=== PATIENT | female | born 2000 | race Two or more races ===

== ENCOUNTER 2024-08-22 10:42 | Emergency (ER) | payer MEDICAID, SELFPAY ==
[2024-08-22 10:53] VITALS: BP 109/78; PULSE 100; RESP 19; TEMP 37.1; O2SAT 96; BMI 28.1
--- NOTE | 2024-08-22 10:57 | EDNOTE_ITS ---
<Statement entered by Dottie Garnica MD - 08/29/24 12:02> As co-signing physician, I was present and available for consult prn. I concur with the plan and care as documented by the midlevel provider. Upper Respiratory Inf. RME/HPI General Chief Complaint: Flu Like Symptoms Stated Complaint: WEAKNESS RECENTLY DIAGNOSED WITH FLU Time Seen by Provider: 08/22/24 10:58 Source: patient Arrival date/time: 08/22/24 10:42 24-year-old female with no known medical history presents to the emergency room with a chief complaint of weakness. Patient was recently diagnosed with influenza A by her primary care provider. Mode of arrival: ambulatory Limitations: no limitations Related Data Previous Rx's ?Medication ?Instructions ?Recorded pantoprazole 40 mg tablet,delayed 40 mg PO QDAY #30 tabs 04/15/22 release (Protonix) tramadol 50 mg tablet 50 mg PO Q8H PRN pain #7 tabs 04/15/22 ursodiol 300 mg capsule 300 mg PO QID #120 caps 04/15/22 ibuprofen 600 mg tablet 600 mg PO Q6H PRN pain #30 tabs 10/15/23 methocarbamol 500 mg tablet 500 mg PO Q4H PRN muscle pain #30 10/15/23 tabs Allergies Allergy/AdvReac Type Severity Reaction Status Date / Time No Known Allergies Allergy Unknown Verified 08/22/24 10:45 Review of Systems Review of Systems Systems Reviewed: All systems reviewed, normal except as documented Constitutional Constitutional: Reports system reviewed and no additional complaints, except as documented, Denies fatigue, Denies fever(s), Denies headache(s) and Denies weakness Eyes Eyes: Reports system reviewed and no additional complaints, except as documented, Denies blurry vision and Denies change in vision ENT Ears, Nose, Mouth, and Throat: Reports system reviewed and no additional complaints, except as documented, Denies otalgia, Denies headache(s), Reports nasal congestion, Denies throat swelling and Denies vertigo Cardiovascular Cardiovascular: Reports system reviewed and no additional complaints, except as documented, Denies chest pain, Denies dyspnea and Denies dyspnea on exertion Respiratory Respiratory: Reports system reviewed and no additional complaints, except as documented, Reports chest congestion, Reports cough, Denies dyspnea, Denies dyspnea on exertion and Denies wheezing Gastrointestinal Gastrointestinal: Reports system reviewed and no additional complaints, except as documented, Denies abdominal pain, Denies cramping, Denies nausea and Denies vomiting Genitourinary Genitourinary: Reports system reviewed and no additional complaints, except as documented Musculoskeletal Musculoskeletal: Reports system reviewed and no additional complaints, except as documented and Denies back pain Integumentary/Breasts Skin/Breast: Reports system reviewed and no additional complaints, except as documented and Denies wounds Neurologic Neurologic: Reports system reviewed and no additional complaints, except as documented, Denies confusion, Denies headache(s), Denies lack of coordination, Denies vertigo and Denies weakness Psychiatric Psychiatric: Reports system reviewed and no additional complaints, except as documented, Denies anxiety, Denies confusion, Denies depression, Denies paranoia, Denies suicidal ideation and Denies tactile hallucinations Endocrine Endocrine: Reports system reviewed and no additional complaints, except as documented and Denies fatigue Hematologic/Lymphatic Hematologic/Lymphatic: Reports system reviewed and no additional complaints, except as documented and Denies lymphadenopathy Allergic/Immunologic Allergic/Immunologic: Reports system reviewed and no additional complaints, except as documented, Denies throat swelling, Denies urticaria and Denies wheezing ED Exam General Limitations: Present no limitations General appearance: Present alert and in no apparent distress Head Head exam: Present atraumatic Eye Eye exam: Present normal appearance, PERRL and EOMI ENT ENT exam: Present normal exam, normal oropharynx and mucous membranes moist Neck Neck exam: Present normal inspection, full ROM and trachea midline Chest Chest inspection: Present normal inspection and symmetric chest wall rise Respiratory Respiratory exam: Present normal lung sounds bilaterally; Absent respiratory distress, wheezes, stridor, accessory muscle use or prolonged expiratory phase Cardiovascular Cardiovascular exam: Present regular rate, normal rhythm and normal heart sounds Abdominal Exam Abdominal exam: Present soft and normal bowel sounds Extremities Exam Extremities exam: Present normal inspection and full ROM Back Exam Back exam: Present normal inspection and full ROM Neurological Exam Neurological exam: Present alert, oriented X3 and CN II-XII intact Psychiatric Psychiatric exam: Present normal affect and normal mood Skin Skin exam: Present warm, dry, intact and normal color Course Quality Measures none Vital Signs Vital signs: Vital Signs Temperature 98.7 F 08/22/24 10:53 Pulse Rate 100 08/22/24 10:53 Respiratory Rate 19 08/22/24 10:53 Blood Pressure 109/78 08/22/24 10:53 Pulse Oximetry (%) 96 08/22/24 10:53 Oxygen Delivery Method Room Air 08/22/24 10:53 O2 saturation 96% within normal limits Upper Respiratory Infection MDM Narrative MDM Narrative:: 24-year-old female with no known medical history presents to the emergency room with a chief complaint of weakness. Patient was recently diagnosed with influenza A by her primary care provider. Clinically the patient appears nontoxic and in no apparent distress. Physical examination shows clear bilateral lung sounds with no wheezing stridor or any respiratory distress. The patient is afebrile and is acting appropriately. Patient was recently diagnosed with influenza A. Patient was discharged and educated to follow-up with primary care provider and return to the emergency room for any evidence of worsening signs or symptoms Patient data External records reviewed:: [facility] previous records Clinical information provided by:: patient Social determinants that could affect healthcare access:: none Patient has the following chronic illnesses:: No chronic illness How is presenting disease/condition affected by chronic disease/condition?: no chronic disease Evaluation data The following diagnostics were reviewed and interpreted by me:: lab results and radiology exam(s) Lab and/or radiology exams considered but not ordered:: Labs and radiology exams considered and ordered Interpretation Summary: N/A Medications / Prescriptions Medications or Prescriptions considered but not ordered:: Medication not given Medication administrations:: Medication not given Consultations Consultation(s) initiated? (list below): No Diagnosis Upper Respiratory Differential Diagnosis: upper respiratory infection, viral infection, bronchitis, influenza and pharyngitis Most likely diagnosis given after review of the tests above:: Influenza Admission Indicated Admission indicated?: not indicated Admission Request Was there a request for admission?: No Disposition Plan Disposition Plan: Discharge Discharge Attestation Discharge Attestation: The patient and all family members were given an opportunity to ask questions and understood the discharge instructions. Discharge instructions specifically effects, indications for sooner follow up or return to the emergency department, and the expected course of current diagnosis. Patient condition: Stable Discharge Plan Plan Patient Disposition: HOME (Self Care) Disposition Comment: Stable Prescriptions/Referrals Prescriptions/Med Rec: No Action ursodiol 300 mg Capsule 300 mg PO QID Qty: 120 0RF pantoprazole [Protonix] 40 mg tablet,delayed release (DR/EC) 40 mg PO QDAY Qty: 30 0RF tramadol 50 mg tablet 50 mg PO Q8H PRN (Reason: pain) Qty: 7 0RF ibuprofen 600 mg tablet 600 mg PO Q6H PRN (Reason: pain) Qty: 30 0RF methocarbamol 500 mg tablet 500 mg PO Q4H PRN (Reason: muscle pain) Qty: 30 0RF Problem List Clinical Impression: Influenza A Patient/Caregiver Discharge Instructions Education Materials: ED Influenza (Adult) Additional Instructions: Please follow-up with your primary care provider in the next 24 to 48 hours. For any evidence of worsening signs or symptoms please return to the emergency room immediately Print Language: Lithuanian Stand Alone Forms: Rasheeda Award Info., Patient Portal Info Letter PA/CONCERT PROMOTER Supervising Physician PA/CONCERT PROMOTER Supervising Physician: Dr. GARNICA
== END 2024-08-22 11:05 | disposition home or self-care (01) ==
LOC: SERX 11:07
PROVIDERS: Emergency Provider Emergency Medicine; PCP Family Medicine
DX: J10.1 Influenza due to other identified influenza virus with other respiratory manifestations (principal)
CPT/HCPCS: 99281

== ENCOUNTER 2025-01-10 17:23 | Emergency (ER) | payer MEDICAID, SELFPAY ==
[2025-01-10 17:57] VITALS: BP 121/79; PULSE 95; RESP 18; TEMP 37.1; O2SAT 99
--- NOTE | 2025-01-10 18:07 | EDNOTE_ITS ---
Nausea/Vomit./Diarrhea-RME/HPI General Chief complaint: Nausea/Vomiting/Diarrhea Stated complaint: Requesting IV FLUIDS, 10 WKS PREG V/D Time Seen by Provider: 01/10/25 18:02 Arrival date/time: 01/10/25 17:23 24-year-old female with no significant medical problems presents to the emergency department today states she is approximately 10 weeks patient reports nausea vomiting and diarrhea which began last night. Patient reports no abdominal pain no chest pain no vaginal bleeding no pelvic pain Limitations: no limitations Related Data Previous Rx's ?Medication ?Instructions ?Recorded pantoprazole 40 mg tablet,delayed 40 mg PO QDAY #30 ta bs 04/15/22 release (Protonix) tramadol 50 mg tablet 50 mg PO Q8H PRN pain #7 tab s 04/15/22 ursodiol 300 mg capsule 300 mg PO QID #120 caps 03/21 03/10 ibuprofen 600 mg tablet 600 mg PO Q6H PRN pain #30 t abs 10/15/23 methocarbamol 500 mg tablet 500 mg PO Q4H PRN muscle p ain #30 10/15/23 tabs promethazine 12.5 mg rectal 12.5 mg [place] Q8HR PRN nausea and 01/10/25 suppository vomiting #12 ea Allergies Allergy/AdvReac Type Severity Reaction Status Date / Time No Known Allergies Allergy Unknown Verified 01/10/25 17:25 Review of Systems Review of Systems Systems Reviewed: All systems reviewed, normal except as documented Constitutional Constitutional: Reports system reviewed and no additional complaints, except as documented, Denies fever(s) and Denies headache(s) Eyes Eyes: Reports system reviewed and no additional complaints, except as documented and Denies blurry vision ENT Ears, Nose, Mouth, and Throat: Reports system reviewed and no additional complaints, except as documented, Denies headache(s), Denies nasal congestion and Denies nasal discharge Cardiovascular Cardiovascular: Reports system reviewed and no additional complaints, except as documented, Denies chest pain and Denies dyspnea Respiratory Respiratory: Reports system reviewed and no additional complaints, except as documented, Denies chest congestion, Denies cough and Denies dyspnea Gastrointestinal Gastrointestinal: Reports system reviewed and no additional complaints, except as documented, Denies abdominal pain, Denies cramping, Denies hematochezia, Reports loose stools, Denies melena, Reports nausea and Reports vomiting Integumentary/Breasts Skin/Breast: Reports system reviewed and no additional complaints, except as documented and Denies rash Neurologic Neurologic: Reports system reviewed and no additional complaints, except as documented, Reports as per HPI and Denies headache(s) Past Medical History Past Medical History NEUROLOGIC: Negative Neurological Disorders or Seizures CARDIAC: Negative Cardiac Disorders or Congestive Heart Failure RESPIRATORY: Negative Chronic Obstructive Pulmonary Disease (COPD) GASTROINTESTINAL: Negative Gastrointestinal Disorders GENITOURINARY: Negative Genitourinary Disorders or Renal Disease REPRODUCTIVE: Positive Previous Pregnancies (Two previous prengancies) MUSCULOSKELETAL: Negative Musculoskeletal Disorders ENDOCRINE: Negative Endocrine Disorders, Diabetes Mellitus Type 1 or Diabetes Mellitus Type 2 HEMATOLOGIC: Negative Blood Disorders OTHER HISTORY: Negative Autoimmune Disease, Blood Transfusions, Blood Transfusion Reaction, Anesthesia Reactions or Cancer Surgical History SURGICAL: Negative Section Social History SMOKING STATUS: Never smoker ED Exam General Limitations: Present no limitations General appearance: Present alert and in no apparent distress Head Head exam: Present atraumatic, normocephalic and normal inspection Eye Eye exam: Present normal appearance, PERRL and EOMI; Absent conjunctival injection ENT ENT exam: Present normal exam, normal oropharynx and mucous membranes moist Neck Neck exam: Present normal inspection, full ROM and trachea midline Chest Chest inspection: Present normal inspection and symmetric chest wall rise Respiratory Respiratory exam: Present normal lung sounds bilaterally; Absent respiratory distress Cardiovascular Cardiovascular exam: Present regular rate, normal rhythm and normal heart sounds Abdominal Exam Abdominal exam: Present soft and normal bowel sounds; Absent distention, tenderness, guarding, rebound or rigidity Extremities Exam Extremities exam: Present normal inspection and full ROM Back Exam Back exam: Present normal inspection and full ROM Neurological Exam Neurological exam: Present alert, oriented X3 and CN II-XII intact Psychiatric Psychiatric exam: Present normal affect and normal mood Skin Skin exam: Present warm, dry, intact and normal color Course Quality Measures none Orders Category Date Time Status Metoclopramide Inj [Reglan Inj] Med 01/10/25 18:02 Discontinued 10 mg IM X1 ONE Vital Signs Vital signs: Vital Signs Temperature 98.8 F 01/10/25 17:57 Pulse Rate 95 01/10/25 17:57 Respiratory Rate 18 01/10/25 17:57 Blood Pressure 121/79 01/10/25 17:57 Pulse Oximetry (%) 99 01/10/25 17:57 Oxygen Delivery Method Room Air 01/10/25 17:57 O2 saturation 99% room air within normal limits Nausea/Vomiting/Diarrhea MDM Narrative MDM Narrative:: 24-year-old female with no significant medical problems presents to the emergency department today states she is approximately 10 weeks patient reports nausea vomiting and diarrhea which began last night. Patient reports no abdominal pain no chest pain no vaginal bleeding no pelvic pain On exam patient well-appearing patient does not appear toxic no acute distress Lab and imaging and IV fluids offered patient declined she states she will take an injection next medication and be discharged home Patient discharged home in no distress to follow-up with primary care doctor in the next 24 to 48 hours and for any worsening symptoms to return to the ER immed iately Patient data External records reviewed:: [facility] previous records Clinical information provided by:: patient Social determinants that could affect healthcare access:: none Patient has the following chronic illnesses:: None How is presenting disease/condition affected by chronic disease/condition?: no chronic disease Evaluation data The following diagnostics were reviewed and interpreted by me:: other (specify) (N/A) Lab and/or radiology exams considered but not ordered:: Considered not ordered Interpretation Summary: N/A Medications / Prescriptions Medications / Prescriptions considered but not ordered:: Given Medication administrations:: Medication Administration History Discontinued Medications Metoclopramide HCl (Metoclopramide Inj 5 Mg/Ml Vial 2 Ml) 10 mg IM X1 ONE; Protocol Stop: 01/10/25 18:03 Last Admin: 01/10/25 18:13 Dose: 10 mg Documented By: KF Given Consultations Consultation(s) initiated? (list below): No Diagnosis Nausea Differential Diagnosis: traveler's diarrhea, food poisoning and gastroenteritis Most likely diagnosis given after review of the tests above:: Gastroenteritis Admission Indicated Admission indicated?: not indicated Admission Request Was there a request for admission?: No Disposition Plan Disposition Plan: Discharge Discharge Attestation Discharge Attestation: The patient and all family members were given an opportunity to ask questions and understood the discharge instructions. Discharge instructions specifically effects, indications for sooner follow up or return to the emergency department, and the expected course of current diagnosis. Patient condition: Stable Discharge Plan Plan Patient Disposition: HOME (Self Care) Discharge Disposition comment: Stable Prescriptions/Referrals Prescriptions/Med Rec: New promethazine 12.5 mg suppository 12.5 mg [place] Q8HR PRN (Reason: nausea and vomiting) Qty: 12 0RF No Action ursodiol 300 mg Capsule 300 mg PO QID Qty: 120 0RF pantoprazole [Protonix] 40 mg tablet,delayed release (DR/EC) 40 mg PO QDAY Qty: 30 0RF tramadol 50 mg tablet 50 mg PO Q8H PRN (Reason: pain) Qty: 7 0RF ibuprofen 600 mg tablet 600 mg PO Q6H PRN (Reason: pain) Qty: 30 0RF methocarbamol 500 mg tablet 500 mg PO Q4H PRN (Reason: muscle pain) Qty: 30 0RF Problem List Clinical Impression: Nausea vomiting and diarrhea Patient/Caregiver Discharge Instructions Education Materials: ED Vomiting (Adult) Additional Instructions: Please follow up with your primary care doctor in the next 24-48hrs for any worsening symptoms return here immediately Print Language: Tajik Stand Alone Forms: Rasheeda Award Info., Patient Portal Info Letter PA/COMPUTER TECHNICAL SUPPORT SPECIALIST Supervising Physician PA/COMPUTER TECHNICAL SUPPORT SPECIALIST Supervising Physician: Dr. ellis
[2025-01-10] MEDS: METOCLOPRAMIDE INJ 5 MG/ML VIAL 2 ML 10 MG IM (18:13)
== END 2025-01-10 18:21 | disposition home or self-care (01) ==
LOC: SERX 18:19
PROVIDERS: Emergency Provider Emergency Medicine; PCP Family Medicine
DX: R11.2 Nausea with vomiting, unspecified (principal); R19.7 Diarrhea, unspecified
CPT/HCPCS: 96372; 99283; J2765

== ENCOUNTER 2025-05-31 14:11 | Observation (INO) | payer MEDICAID, SELFPAY ==
[2025-05-31] VITALS (15 sets, daily range): BP systolic 109–111; BP diastolic 61–69; PULSE 82–142; RESP 16–98; TEMP 36.5; O2SAT 99–100; BMI 27.4
--- NOTE | 2025-05-31 14:39 | XR_ITS ---
Examination: OB Transvaginal ultrasound of the pelvis, limited Technique: Transvaginal sonographic images pelvis performed using christiansen scale imaging Exam date and time: May 31, 2025, 1504 hours INDICATIONS: Onset lower pelvic pressure today. FINDINGS: Cervix 3.9 cm closed IMPRESSION: Cervix 3.9 cm closed
[2025-05-31 14:52] LABS: Collection Type, Urine Clean Catch
[2025-05-31 15:03] LABS: Bilirubin,Urine Negative (Negative); Blood,Urine Negative (Negative); Clarity,Urine Clear (Clear/Hazy); Color,Urine Colorless (Lt Yel-Yel); Culture Indicated,Urine Not Indicated; Glucose, Urine Negative (Negative); Ketones,Urine Negative (Negative); Leukocyte Esterase,Urine Negative (Negative); Nitrite,Urine Negative (Negative); PH,Urine 7.0 (5.0-7.0); Protein,Urine Negative (Neg - Trace); RBC,Urine 1 /hpf (0-3); Specific Gravity,Urine 1.008 (1.001-1.035); Squamous Epithelial Cell,Urine 3 /hpf (0-5); Urobilinogen,Urine Negative mg/dL (0.0-1.0); WBC,Urine 1 /hpf (0-5)
[2025-05-31] MEDS: RINGERS LACTATED 1000 ML 1,000 ML 999 ML IV (16:52)
[2025-05-31] MEDS: TERBUTALINE SULF INJ 1 MG/ML VIAL 0.25 MG SC (18:13)
== END 2025-05-31 19:23 | disposition home or self-care (01) ==
PROVIDERS: Admitting Provider Obstetrics & Gynecology; Visit Provider Obstetrics & Gynecology
DX: O47.03 False labor before 37 completed weeks of gestation, third trimester (principal); Z3A.30 30 weeks gestation of pregnancy
CPT/HCPCS: 59025; 59899; 76817; 81001; 82731; J3105; J7120

== ENCOUNTER 2025-07-10 09:07 | Outpatient (AMB) | payer MEDICAID, SELFPAY ==
[2025-07-10 09:21] VITALS: BP 107/69; PULSE 84; RESP 18; TEMP 36.3; O2SAT 98; BMI 28.8
--- NOTE | 2025-07-10 09:21 | OBCLNT_ITS ---
Vital Signs 07/10/25 09:21 Height 1.45 m Height Method Stated Weight 60.441 kg Weight Measurement Method Standing Scale BMI 28.8 BP 107/69 Blood Pressure Source Automatic Cuff Blood Pressure Location Right Upper Arm Position Sitting Respiration 18 Pulse 84 Pulse Source Monitor Temp 97.3 F Temp Source Temporal Artery Scan Pulse Oximetry (%) 98 Oxygen Delivery Method Room Air Allergies/Home Meds Allergies & Medications Allergies No Known Allergies Allergy (Unknown, Verified 07/10/25 09:23) Medication Reconciliation vits no.130-ferrous fum 27 mg iron-folic acid 800 mcg tablet ( Vitamin) 1 tab PO .qay 05/31/25 [History Confirmed 07/10/25] Intake Visit Data Collection New Patient or Established: Established Patient (seen at [facility] within 3 years) 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 Visit:: 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 TRANSFER Seen by Clinical Staff ONLY (RN/MA): No Elevator Installer Required: No Do You Feel Safe at Home: Yes Authorities Contacted: N/A PCP or OBGYN visit in last 3 months: Yes Hx Now: Yes Are you currently on any form of Control: No Pain Present Currently: No Pain Scale Used: Erickson-Harman/Numerical Pain scale:: 0 Smoking Status Smoking Status: Never smoker Immunizations Flu Vaccine in the Last 12 Months: No Flu Vaccine Exclusion Criteria: No Exclusion Criteria Questionnaires Covid-19 Vaccine Questionnaire Has patient been vacinated for Covid-19 Have you been vacinated for Covid-19: No PHQ-9 PHQ-2 Over the last 2 weeks, how often have you been bothered by any of the following problems? 1. Little interest or pleasure in doing things: not at all 2. Feeling down, depressed, or hopeless: not at all Total score: 0 PHQ-9 3. Trouble falling or staying asleep, or sleeping too much: Not at all 4. Feeling tired or having little energy: Not at all 5. Poor appetite or overeating: Not at all 6. Feeling bad about yourself - or that you are a failure or have let yourself or your family down: Not at all 7. Trouble concentrating on things, such as reading the newspaper or watching television: Not at all 8. Moving or speaking so slowly that other people could have noticed? - Or the opposite - being so fidgety or restless that you have been moving around a lot more than usual: not at all 9. Thoughts that you would be better off or of hurting yourself in some way : Not at all Total score: 0 If you checked off any problems, how difficult have these problems made it for you to do your work, take care of things at home, or get along with other people?: not difficult at all Source: Developed by Drs. Benjamín Johnson, Griselda Milligan, Marvel Granados and colleagues, with an educational bethany from [employer]. 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 Rouse's office. Records present. GBS negative. Patient denies any problems with . Reports good movement. Denies leaking, bleeding, contractions. Reports movement sono for growth at [facility]. Menstrual History Menstrual reliability: approximate (month known) Flow: normal Menstrual regularity: regular Monthly: Yes Age at menarche: 13 OB History : 3 Para: 2 # of Living Children: 2 Delivery History 1st : Child's name: RADHA HAMILTON date: 03/11/17 sex: male Gestational age at delivery (weeks): 36 Delivery type: vaginal History of depression before or after : No 2nd : Child's name: THAO HAMILTON date: 03/28/20 sex: male Gestational age at delivery (weeks): 38 Delivery type: vaginal History of depression before or after : No Infection History & Risk Evaluation History of STDs: none Genetic Screening & History Genetic Screening/Teratology Counseling - Includes patient, baby's father, or anyone in either family with: 1. Patient's age 35 years or older as of estimated date of delivery: No 2. Thalassemia (Czech, Salvadorean, Mediterranean, or Background); MCV less than 80: No 3. Neural Tube Defect (Meningomyelocele, Spina Bifida, or Anencephaly): No 4. Congenital Heart Defect: No 5. Down Syndrome: No 6. Johny-Sachs (Ashkenazi Jehovah'S Witness, Cajun, Bulgarian Cambodian): No 7. Lamberto Disease (Ashkenazi Jehovah'S Witness): No 8. Familial Dysautonomia (Ashkenazi Jehovah'S Witness): No 9. Sickle Cell Disease or Trait (): No 10. Hemophilia or other blood disorders: No 11. Muscular Dystrophy: No 12. Cystic Fibrosis: No 13. Spearfish's Chorea: No 14. Mental Retardation/Autism: No 15. Other inherited genetic or chromosomal disorder: No 16. Maternal Metabolic Disorder (EG,TYPE 1 Diabetes, PKU): No 17. Patient or baby's father had a child with defects not listed above: No 18. Recurrent loss or a stillbirth: No 19. Medications (including supplements, vitamins, herbs or otc drugs)/illicit/recreational drugs/alcohol since last menstrual period: No Infection History 1. Live with someone with TB or exposed to TB: No Other (see comments) Source: [employer] Review of Systems Review of Systems Systems Reviewed: All systems reviewed, normal except as documented Exam General Limitations: no limitations General Appearance: alert, in no apparent distress, comfortable, cooperative, h ealthy appearing, well developed and well groomed Head Head exam: atraumatic, normocephalic and normal inspection ENT ENT exam: Present normal exam, normal oropharynx and mucous membranes moist Neck Neck exam: Present normal inspection, full ROM and trachea midline Chest Chest inspection: Present normal inspection and symmetric chest wall rise Resp Respiratory exam: Present normal lung sounds bilaterally Abdominal Abdominal exam: Present soft and normal bowel sounds Psych Psychiatric exam: Present normal affect and normal mood Office Procedures OBC Clinic LOC & Office Proc's Nursing/Assessment Patient Status: Established Patient OB Clinic Nursing Assessment: Medication Reconciliation, Update PMH in EMR and Vital Signs OB Clinic Coordination of Care: Complex Care and Chronic Disease 1-5, Education Complex Pt/Fam, Consent,records obtained, informed consent, Lab and Imaging orders, Results/Orders obtained and Staff clarify orders Special Needs: Heart tones Established Patient Charge Established Patient Point Assignment: 140 Established Patient Point Charge: EP Level 4 (120-155) Assessment & Plan Diagnosis / Problem List (1) Encounter for supervision of high risk in third trimester, antepartum: Status: Acute Plan Discussed labor precautions. Kick count twice a day. Reviewed GBS. Sono for growth. Return in a week OB check at [facility] Additional Plan Follow Up: 1 Week (obc)
== END 2025-07-10 09:50 | disposition home or self-care (01) ==
LOC: HODSOBC 09:07
PROVIDERS: Supervising Provider Advanced Practice Midwife; Visit Provider Advanced Practice Midwife
DX: O09.93 Supervision of high risk pregnancy, unspecified, third trimester (principal); Z3A.36 36 weeks gestation of pregnancy
CPT/HCPCS: 99214; G0463

== ENCOUNTER 2025-07-13 09:04 | Outpatient (AMB) | payer MEDICAID, SELFPAY ==
[2025-07-13 09:20] VITALS: BP 112/76; PULSE 92; RESP 18; TEMP 36.3; O2SAT 98; BMI 28.3
--- NOTE | 2025-07-13 09:20 | OBCLNT_ITS ---
Vital Signs 07/13/25 09:20 Height 1.45 m Height Method Stated Weight 59.534 kg Weight Measurement Method Standing Scale BMI 28.3 BP 112/76 Blood Pressure Source Automatic Cuff Blood Pressure Location Left Upper Arm Position Sitting Respiration 18 Pulse 92 Pulse Source Monitor Temp 97.3 F Temp Source Oral Pulse Oximetry (%) 98 Oxygen Delivery Method Room Air Allergies/Home Meds Allergies & Medications Allergies No Known Allergies Allergy (Unknown, Verified 07/13/25 09:21) Medication Reconciliation vits no.130-ferrous fum 27 mg iron-folic acid 800 mcg tablet ( Vitamin) 1 tab PO .qay 05/31/25 [History Confirmed 07/13/25] Immunizations Immunizations Flu Vaccine in the Last 12 Months: Yes Date of most recent flu vaccination: 07/13/25 Flu Vaccine Exclusion Criteria: Already Received Care OB Visit Log OB Flowsheet Initial Weight: Not Recorded Date -?-?-?-?-?-?-?-?-?-?-?-?- EGA Weight BP Alb Glu CTX Pres Fundal ht FHR Mov Dilation Station Efface ment Hx Notes Visit Note 07/10/25 -?-?-?-?-?-?-?-?-?-?-?-?- 36w 1d 60.441 kg 107/69 occasional cephalic [address] Rouse's office. Records present. GBS negative. Patient denies any problems with . Reports good movement. Denies leaking, bleeding, contractions. Reports movement sono for growth at [facility]. 07/13/25 -?-?-?-?-?-?-?-?-?-?-?-?- 36w 4d 59.534 kg 112/76 occasional cephalic 36 145 active 2 -4 50 Increased pressure and contractions. Denies leaking or bleeding. Reports good movement. sve: 50/post/2/-4 soft Discussed labor precautions. Kick count. Discussed ER precautions. Return in a week OB check CELSO Calculator Estimated Delivery Date Method Current WG Current Estimate 08/06/25 LMP (Certain) 36w 4d Notes Visit Date: 07/10/25 Last Updated by: Pam Tobias CNM 25 yo . lmp 10/30/24. EDC: 08/06/25. O+,abs-,rpr;;nr, rub ni, hbsag-,hiv-,hc-,GC/CT-. nipt and carrier-, 1 hr gtt wnl, GBS- Office Procedures OBC Clinic LOC & Office Proc's Nursing/Assessment Patient Status: Established Patient OB Clinic Nursing Assessment: Medication Reconciliation, Update PMH in EMR and Vital Signs OB Clinic Coordination of Care: Complex Care and Chronic Disease 1-5, Consent,records obtained, informed consent, Education Simp Pt/Fam, 1 Ins Authorization, Lab and Imaging orders, Results/Orders obtained and Staff clarify orders Special Needs: Heart tones Established Patient Charge Established Patient Point Assignment: 150 Established Patient Point Charge: EP Level 4 (120-155) Injection/Vaccine Admin SQ Im Injection: Yes Immunizations flu vac ts (6mos up)-PF 45 mcg(15mcg x3)/0.5 mL IM syringe Performing Provider: Pam Tobias CNM Performing Location: [facility] Administered by: Juju Mtz MA on 07/13/25 10:41 Dose Route Admin Location Dispensed Lot Number Expiration Date Pack age [facility] [employer] 0.5 mL IM Left Deltoid 0.5 mL [id number] 02/16/26 [id number] [employer] VIS Given Date VIS Provided VIS Publication Date 07/13/25 Single Vaccine 24 Eligibility Eligibility Date Funding Source Public Non-[facility] Assessment & Plan Diagnosis / Problem List (1) Encounter for supervision of high risk in third trimester, antepartum: Status: Acute Plan Discussed labor precautions. Kick count twice a day. Discussed comfort measures. Return in a week OB check discussed ER precautions Additional Plan Follow Up: 1 Week (obc)
== END 2025-07-13 09:54 | disposition home or self-care (01) ==
LOC: HODSOBC 09:04
PROVIDERS: Supervising Provider Advanced Practice Midwife; Visit Provider Advanced Practice Midwife
DX: O09.93 Supervision of high risk pregnancy, unspecified, third trimester (principal); Z3A.36 36 weeks gestation of pregnancy; Z23 Encounter for immunization
CPT/HCPCS: 90471; 90686; 96372; 99214; G0463; J9060

== ENCOUNTER 2025-07-17 06:38 | Inpatient (IN) | payer MEDICAID, SELFPAY ==
[2025-07-17] VITALS (21 sets, daily range): BP systolic 101–132; BP diastolic 58–94; PULSE 65–104; RESP 16–97; TEMP 36.8–36.9; O2SAT 90–99; BMI 28.7; BMI 28.5
[2025-07-17 07:22] LABS: ROM Kit Exp Date# 041128; ROM Kit Lot # 58106258; ROM Swab Mixed By: NUNEE1; Rupture of Fetal Membranes Positive (Negative); Swb Mxed in Solvent 1 min? Yes
[2025-07-17] MEDS: OXYTOCIN in NS 20 units 20 UNIT/1,000 ML BAG 125 UNIT IV (07:31)
[2025-07-17] MEDS: MINERAL OIL 30 ML UDC TOP (07:31)
--- NOTE | 2025-07-17 07:41 | ESHP_ITS ---
Documentation for date of: 07/17/25 OB Labor/Induct. HPI History of Present Illness Chief complaint: Active labor : 3 Para: 2 Term pregnancies: 2 pregnancies: 0 Living children: 2 History of Abortions: Spontaneous and Elective: 0 History of Vaginal deliveries: 2 History of sections: No History of : No CELSO: 08/06/25 History of present illness: Aaron is a 25-year-old 3 para 2-0-0-2 at 37 weeks and 1 day presented to labor and delivery triage in active labor. Patient went down from 3 cm to full dilatation and less than 1 hour and proceeded to deliver precipitously. Patient presented with contractions every 3 to 4 minutes, denied any leakage of fluid or vaginal bleeding. Adequate movements. Patient started care at [facility] with Dr. Rouse. She transferred care to Pam Tobias CNM at the [facility] clinic within the last 2 weeks. I do not have any of her [facility] records available for review. History of Present Adequate Care: Yes Review of Systems Review of Systems Systems Reviewed: All systems reviewed, normal except as documented Past Medical History Surgical History SURGICAL: Negative Section Meds Home Medications and Allergies Home Medications ?Medication ?Instructions ?Recorded ?Confirmed ?Type vits no.130-ferrous fum 1 tab PO .qay 5 07/17/25 History 27 mg iron-folic acid 800 mcg tablet ( Vitamin) Allergies Allergy/AdvReac Type Severity Reaction Status Date / Time No Known Allergies Allergy Unknown Verified 07/17/25 07:17 OB Exam Physical Exam Vital signs: Temp Pulse Resp BP Pulse Ox 98.5 F 80 19 129/83 92 L 07/17/25 06:52 07/17/25 07:34 07/17/25 06:52 07/17/25 07:34 07/17/25 07:09 Constitutional Constitutional: no acute distress Routine HEENT Exam Head: Present normocephalic and atraumatic Eye: Present EOMI and PERRL ENT: Present mucous membranes moist Routine Neck Exam Neck: Present supple and trachea midline Routine Cardiovascular Exam Cardiovascular: Present RRR Routine Abdominal Exam Abdominal: Present soft and normoactive bowel sounds Detailed Labor and Delivery Exam Dilation (cm): 10 Effacement (%): 100 Cervix position: mid station: +4 Consistency: soft Presentation: Vertex Routine Extremities Exam Extremities: Present full ROM Routine Skin Exam Skin: Present intact, dry and warm Routine Neurological Exam Neurological: Present alert, oriented X3 and CN II-XII intact Routine Psychiatric Exam Psychiatric: Present normal affect and normal thought process OB Results Labs 07/17/25 07:20 OB Assessment & Plan Assessment and Plan (1) Encounter for supervision of high risk in third trimester, antepartum: Status: Acute Assessment and plan: Admit to inpatient status, patient is status post precipitous delivery Routine care, will try to get records when her office is open (2) Vaginal delivery: Status: Acute
[2025-07-17 07:47] LABS: Basophils # (Auto) 0.1 Thou/mm3 (0.0-0.2); Basophils % (Auto) 1 % (0-2.5); Eosinophils # (Auto) 0.1 Thou/mm3 (0.0-0.5); Eosinophils % (Auto) 0 % (0-10); Hematocrit 37.4 % (36.0-46.0); Hemoglobin 12.6 g/dL (12.0-16.0); Immature Granulocytes Auto 0.19 Thou/mm3 (0.00-0.00); Lymphocytes # (Auto) 3.1 Thou/mm3 (1.0-4.8); Lymphocytes % (Auto) 25 % (10-50); Mean Corpuscular HGB Conc 33.7 g/dl (31.0-37.0); Mean Corpuscular Hemoglobin 28.1 pg (25.0-35.0); Mean Corpuscular Volume 83 fL (80-100); Monocytes # (Auto) 0.7 Thou/mm3 (0.0-0.8); Monocytes % (Auto) 6 % (0-12); Neutrophils # (Auto) 8.3 Thou/mm3 (1.8-7.7); Neutrophils % (Auto) 67 % (37-80); Nucleated Red Blood Cell # 0.00 Thou/mm3 (0.00-0.00); Nucleated Red Blood Cell % 0 /100 WBC (0); Platelet Count 335 Thou/mm3 (140-440); RDW Standard Deviation 39.9 fL (36.4-46.3); Red Blood Count 4.49 Miln/mm3 (4.00-5.20); White Blood Count 12.4 Thou/mm3 (3.6-11.0)
[2025-07-17] MEDS: TRANEXAMIC ACID 1,000 MG IVPB 1,000 MG/100 ML BAG 200 MG IV (08:19)
[2025-07-17 08:28] LABS: Syphilis Nonreactive (Nonreactive)
[2025-07-17] MEDS: IBUPROFEN TAB 400 MG TABLET 800 MG PO (17:37)
--- NOTE | 2025-07-17 18:51 | PD.LDDELS ---
Data (Junior) Data Hx Section: No : 3 Term: 2 : 0 Livin Abortions: Spontaneous & Theraputic: 0 Delivery Data (Junior) Labor Data Initiation of labor: Spontaneous Induction/Augmentation Agent: None ROM date: 07/17/25 ROM time: 06:20 Amniotic membrane rupture type: Spontaneous Amniotic fluid description: Clear Delivery Data Onset of labor date: 07/17/25 Onset of labor time: 03:00 Complete dilation date: 07/17/25 Complete dilation time: 07:28 delivery date: 07/17/25 delivery time: 07:30 Placenta delivery date: 07/17/25 Placenta delivery time: 07:32 Stage 1 total time: Labor - Stage 1 Duration 4 hours and 28 minutes Delivered by: Elijah Pang Delivery nurse: Mariam Carlson RN [place] nurse: Mar HIGGINS RN Air Launch Weapons Technician at delivery: No Support person(s) at delivery: fob & mother of pt Delivery Method Delivery method: Normal Vaginal Delivery Presentation: Vertex Anesthesia Type Anesthesia Type: None Placenta Placenta delivery description: Spontaneous Cord blood sent to lab: Yes cord blood collection: Cord Blood Type Episiotomy Episiotomy description: None Umbilical Cord cord description: 3 Vessels [place] Data (Junior) [place] Data order: 1 's gender: Female Identification band number: [id number] length: 50.8 cm 1 minute: 7 5 minutes: 9
[2025-07-18 00:05] VITALS: BP 108/71; PULSE 65; RESP 16; TEMP 37; O2SAT 98
[2025-07-18 04:15] VITALS: BP 100/65; PULSE 83; RESP 16; TEMP 36.6
[2025-07-18 08:00] VITALS: BP 118/79; PULSE 86; RESP 16; TEMP 37.4; O2SAT 98
[2025-07-18 08:32] LABS: Basophils # (Auto) 0.0 Thou/mm3 (0.0-0.2); Basophils % (Auto) 0 % (0-2.5); Eosinophils # (Auto) 0.1 Thou/mm3 (0.0-0.5); Eosinophils % (Auto) 1 % (0-10); Hematocrit 32.7 % (36.0-46.0); Hemoglobin 10.9 g/dL (12.0-16.0); Immature Granulocytes Auto 0.14 Thou/mm3 (0.00-0.00); Lymphocytes # (Auto) 2.0 Thou/mm3 (1.0-4.8); Lymphocytes % (Auto) 20 % (10-50); Mean Corpuscular HGB Conc 33.3 g/dl (31.0-37.0); Mean Corpuscular Hemoglobin 27.7 pg (25.0-35.0); Mean Corpuscular Volume 83 fL (80-100); Monocytes # (Auto) 0.7 Thou/mm3 (0.0-0.8); Monocytes % (Auto) 7 % (0-12); Neutrophils # (Auto) 7.1 Thou/mm3 (1.8-7.7); Neutrophils % (Auto) 71 % (37-80); Nucleated Red Blood Cell # 0.00 Thou/mm3 (0.00-0.00); Nucleated Red Blood Cell % 0 /100 WBC (0); Platelet Count 249 Thou/mm3 (140-440); RDW Standard Deviation 40.5 fL (36.4-46.3); Red Blood Count 3.94 Miln/mm3 (4.00-5.20); White Blood Count 10.1 Thou/mm3 (3.6-11.0)
[2025-07-18] MEDS: DOCUSATE SOD 100 MG CAPSULE PO (08:58)
[2025-07-18] MEDS: IBUPROFEN TAB 400 MG TABLET 800 MG PO (09:07)
--- NOTE | 2025-07-18 09:19 | PD.LDPPPRG ---
Subjective Subjective Interval history: The patient is a 25-year-old -0-0-3 status post precipitous vaginal delivery 07/17/2025 around 7:30 in the morning. Today the patient is resting comfortably in bed. She is breast-feeding. She denies heavy vaginal bleeding. She is ambulating and voiding. She did not have any tears at delivery. She is tolerating a general diet. Patient would like to be discharged home. Exam Vital Signs Temp Pulse Resp BP Pulse Ox O2 Del Method 99.3 F 86 16 118/79 98 Room Air 07/18/25 08:00 07/18/25 08:00 07/18/25 08:00 07/18/25 08:00 07/18/25 08:00 07/18/25 08:00 Narrative Exam Patient is alert and orient x 3 in no apparent distress. Fundus is firm at umbilicus extremities show no significant edema or erythema. Objective Labs 07/18/25 08:01 Labs: Laboratory Results - last 24 hr 07/18/25 08:01 WBC 10.1 RBC 3.94 L Hgb 10.9 L Hct 32.7 L MCV 83 MCH 27.7 MCHC 33.3 RDW Std Deviation 40.5 Plt Count 249 D Neut % (Auto) 71 Lymph % (Auto) 20 [place] % (Auto) 7 Eos % (Auto) 1 Baso % (Auto) 0 Neut # (Auto) 7.1 Lymph # (Auto) 2.0 [place] # (Auto) 0.7 Eos # (Auto) 0.1 Baso # (Auto) 0.0 Immature Gran # (Auto) 0.14 H Absolute Nucleated RBC 0.00 Immature Gran % 1 H Nucleated RBC % 0 Assessment & Plan Problem List (1) Encounter for supervision of high risk in third trimester, antepartum: Status: Acute (2) care following vaginal delivery: Problem details: Patient is doing well. Predelivery hemoglobin postdelivery hemoglobin stable. She is breast-feeding. She is discharged home day #1 in stable condition. Discharge instructions included no intercourse tampons douching for 6 weeks. She will follow-up with Pam in the office in 2 weeks. Status: Acute Time Spent With Patient Time: Total time spent is greater than 50% in coordination of care (as documented) at patient's floor/unit and/or counseling patient: Time with patient: less than 15 minutes
--- NOTE | 2025-07-18 09:22 | PD.LDDS ---
DS: Providers Provider Date of admission: 07/17/25 06:38 Primary care physician: Physician No Primary/Family Admitting Provider: Elijah Pang MD Attending Provider on Admission: Elijah Pang MD Consults: 07/17/25 07:52 Referral Routine Comment: Attending Provider on DC: Rebecca Parker MD (OB Clinic) Discharging Provider: Rebecca Parker MD (OB Clinic) Anticipated date of discharge: 07/18/25 DS: Diagnosis Discharge Diagnosis (1) care following vaginal delivery: Status: Acute Assessment & Plan: Patient will be discharged home day #1 in stable condition. Discharge instructions given. Problem List Completed Was Problem List Reviewed/Reconciled?: Yes Summary/Hosp Course Brief History: Aaron is a 25-year-old 3 para 2-0-0-2 at 37 weeks and 1 day presented to labor and delivery triage in active labor. Patient went down from 3 cm to full dilatation and less than 1 hour and proceeded to deliver precipitously. Patient presented with contractions every 3 to 4 minutes, denied any leakage of fluid or vaginal bleeding. Adequate movements. Patient started care at [facility] with Dr. Rouse. She transferred care to Pam Tobias CNM at the [facility] clinic within the last 2 weeks. I do not have any of her [facility] records available for review. The patient was admitted 07/17/[address] Pang. Please see history and physical for further details. Hospital course: Patient underwent a precipitous vaginal delivery 07/17/2025 at 7:30 in the morning. She rapidly progressed from 3 cm to delivery. She delivered over an intact perineum. Please see delivery notes from Dr. Pang on the chart. day #1 patient was doing well. Bleeding was minimal. She was ambulating tolerating a general diet voiding and working on breast-feeding. Her predelivery hemoglobin was 12.6. Postdelivery hemoglobin was 10.9. She was discharged home day #1 in stable condition. Discharge instructions included no intercourse tampons douching bathtubs x 6 weeks. She was to follow-up in clinic to see Pam in about 2 weeks. She was to call for fevers heavy vaginal bleeding or depression. Discharge medications included ibuprofen and Tylenol as needed. Peripartum Data Delivery Method: Normal Vaginal Delivery Episiotomy Description: None Laceration Description: see Delivery Summary complications: none Status at Discharge Functional status at discharge: independent ambulation Overall status at discharge: patient is progressing back to baseline Time Spent with Patient Time attestation: Total time spent providing and/or coordinating discharge services: Time spent: Less than 30 minutes Specific discharge activities: Pelvic rest x 6 weeks. Exam Vital Signs Temp Pulse Resp BP Pulse Ox O2 Del Method 99.3 F 86 16 118/79 98 Room Air 07/18/25 08:00 07/18/25 08:00 07/18/25 08:00 07/18/25 08:00 07/18/25 08:00 07/18/25 08:00 Narrative Exam Patient is alert and orient x 3 in no apparent distress. Fundus is firm. Extremities show no significant edema or erythema. Discharge Plan Plan Patient Disposition: HOME (Self Care) Disposition Comment: Stable Patient condition on transfer: Stable Prescriptions/Referrals Prescriptions/Med Rec: New docusate sodium [Stool Softener] 100 mg capsule 100 mg PO QDAY 30 Days Qty: 30 0RF ibuprofen 600 mg tablet 600 mg PO Q6H MDD 4 PRN (Reason: fever or pain) 10 Days Qty: 40 0RF Continued Vitamin 27 mg iron- 800 mcg tablet 1 tab PO .qay Patient Comments: TAKE 1 TABLET BY MOUTH EVERY DAY Referrals: No Primary/Family,Physician [Primary Care Provider] Patient/Caregiver Discharge Instructions Discharge Activity: activity as tolerated Other Discharge Activity Instructions:: Pelvic rest x 6 weeks. No intercourse tampons douching swimming pools x 6 weeks Other Discharge Diet Instructions: General diet Education Materials: After Delivery Whitmer Concerns, Breast Care After , Feel Healthy After Print Language: Chinese Activity Restrictions/Additional Instructions: Call with heavy bleeding, fevers or signs of depression. Stand Alone Forms: Rasheeda Award Info., Patient Portal Info Letter, Work/Release Restrictions Discharge Order Discharge Orders: Discharge (Routine); Ordered 07/18/25 Ordered By: Rebecca Parker (OB Clinic) Planned Discharge Date 07/18/25
[2025-07-18] MEDS: DIPHTH,PERTUSS(ACELL),TET VAC 0.5 ML SYR- ADULT IMi (13:44)
== END 2025-07-18 14:12 | disposition home or self-care (01) | DRG 560 ==
LOC: S4SX 09:17 → S4NX 10:22 → S4SX 07-20 11:29
PROVIDERS: Admitting Provider Obstetrics & Gynecology; Visit Provider Obstetrics & Gynecology
DX: O62.3 Precipitate labor (principal); Z37.0 Single live birth; Z3A.37 37 weeks gestation of pregnancy
CPT/HCPCS: 36415; 59409; 59899; 84112; 85025; 86780; 86850; 86900; 86901; 87491; 87591; 87661; 90715; 94762; J2590; J3490; A9270

== ENCOUNTER 2025-08-18 13:02 | Outpatient (AMB) | payer MEDICAID, SELFPAY ==
--- NOTE | 2025-08-18 13:15 | AMB.OBPNC ---
Vital Signs 08/18/25 13:16 Height 1.45 m Height Method Stated Weight 56.359 kg Weight Measurement Method Standing Scale BMI 26.8 BP 101/71 Blood Pressure Source Automatic Cuff Blood Pressure Location Right Upper Arm Position Sitting Respiration 18 Pulse 74 Pulse Source Monitor Temp 97.8 F Temp Source Temporal Artery Scan Pulse Oximetry (%) 98 Oxygen Delivery Method Room Air Allergies/Home Meds Allergies & Medications Allergies No Known Allergies Allergy (Unknown, Verified 08/18/25 13:16) Medication Reconciliation vits no.130-ferrous fum 27 mg iron-folic acid 800 mcg tablet ( Vitamin) 1 tab PO .qay 05/31/25 [History Confirmed 08/18/25] Immunizations Immunizations Flu Vaccine in the Last 12 Months: No Flu Vaccine Exclusion Criteria: No Exclusion Criteria Care OB Visit Log OB Flowsheet Initial Weight: Not Recorded Date <del>?</del> EGA Weight BP Alb Glu CTX Pres Fundal ht FHR Mov Dilation Station Effacement Hx Notes Visit Note 07/10/25 <del>?</del> 36w 1d 60.441 kg 107/69 occasional cephalic [address] Rouse's office. Records present. GBS negative. Patient denies any problems with . Reports good movement. Denies leaking, bleeding, contractions. Reports movement sono for growth at [facility]. 07/13/25 <del>?</del> 36w 4d 59.534 kg 112/76 occasional cephalic 36 145 active 2 -4 50 Increased pressure and contractions. Denies leaking or bleeding. Reports good movement. sve: 50/post/2/-4 soft Discussed labor precautions. Kick count. Discussed ER precautions. Return in a week OB check CELSO Calculator Estimated Delivery Date Method Current WG Current Estimate 08/06/25 LMP (Certain) 41w 5d Notes Visit Date: 07/10/25 Last Updated by: Pam Tobias CNM 25 yo . lmp 10/30/24. EDC: 08/06/25. O+,abs-,rpr;;nr, rub ni, hbsag-,hiv-,hc-,GC/CT-. nipt and carrier-, 1 hr gtt wnl, GBS-
[2025-08-18 13:16] VITALS: BP 101/71; PULSE 74; RESP 18; TEMP 36.6; O2SAT 98; BMI 26.8
--- NOTE | 2025-08-18 13:17 | AMBOBPPN_ITS ---
Vital Signs 08/18/25 13:16 08/18/25 13:18 Height 1.45 m Height Method Stated Weight 56.359 kg Weight Measurement Method Standing Scale BMI 26.8 BP 101/71 101/71 Blood Pressure Source Automatic Cuff Blood Pressure Location Right Upper Arm Position Sitting Respiration 18 18 Pulse 74 74 Pulse Source Monitor Temp 97.8 F 97.8 F Temp Source Temporal Artery Scan Pulse Oximetry (%) 98 98 Oxygen Delivery Method Room Air Allergies/Home Meds Allergies & Medications Allergies No Known Allergies Allergy (Unknown, Verified 08/18/25 13:16) Medication Reconciliation vits no.130-ferrous fum 27 mg iron-folic acid 800 mcg tablet ( Vitamin) 1 tab PO .qay 05/31/25 [History Confirmed 08/18/25] Intake Visit Data Collection New Patient or Established: Established Patient (seen at [facility] within 3 years) Reason for Visit:: Seen by Clinical Staff ONLY (RN/MA): No Loading Manager Required: No Do You Feel Safe at Home: Yes Authorities Contacted: N/A PCP or OBGYN visit in last 3 months: No Hx Now: No Are you currently on any form of Control: No Pain Present Currently: No Pain Scale Used: Erickson-Harman/Numerical Pain scale:: 0 Smoking Status Smoking Status: Never smoker Immunizations Flu Vaccine in the Last 12 Months: No Flu Vaccine Exclusion Criteria: No Exclusion Criteria MANAGER E LEARNING: Past Medical History Past Medical History: No Hx Neurological Disorders, No Hx Breast Cancer, No Hx Cardiac Disorders, No Hx Cancer, No Hx Blood Disorders, No Hx Anemia, No Hx Gastrointestinal Disorders, No Hx Renal Disease, No Hx Diabetes Mellitus Type 1 and No Hx Diabetes Mellitus Type 2 Questionnaires Covid-19 Vaccine Questionnaire Has patient been vacinated for Covid-19 Have you been vacinated for Covid-19: No Social History Living Situation History Marital Status: Life Partner Lives With: Family Housing: House Housing Other:: Lives with her boyfriend Tobacco History Smoking Status: Never smoker Second Hand Smoke Exposure: No Alcohol History Alcohol Intake: Never Domestic Abuse History Do You Feel Safe at Home: Yes EPDS - PP Depression Screening [place] Pospartum Depression Screen I have been able to laugh and see the funny side of things: (0) As much as I always could I have looked forward with enjoyment to things: (0) As much as I ever did I have blamed myself unnecessarily when things went wrong: (0) No, never I have been anxious or worried for no good reason: (0) No, not at all I have felt scared or panicky for no very good reason: (0) No, not at all Things have been getting on top of me: (0) No, I have been coping as well as ever I have been so unhappy that I have had difficulty sleeping: (0) No, not at all I have felt sad or miserable: (0) No, not at all I have been so unhappy that I have been crying: (0) No, never The thought of harming myself has occurred to me: (0) Never EPDS completed yes Care OB Visit Log OB Flowsheet Initial Weight: Not Recorded Date -?-?-?-?-?-?-?-?-?--?-?-?- EGA Weight BP Alb Glu CTX Pres Fundal ht FHR Mov Dilation Station Effacement Hx Notes Visit Note 07/10/25 -?-?-?-?-?-?-?-?-?-?-?-?- 36w 1d 60.441 kg 107/69 occasional cephalic [address] Rouse's office. Records present. GBS negative. Patient denies any problems with . Reports good movement. Denies leaking, bleeding, contractions. Reports movement sono for growth at [facility]. 07/13/25 -?-?-?-?-?-?-?-?-?-?-?-?- 36w 4d 59.534 kg 112/76 occasional cephalic 36 145 active 2 -4 50 Increased pressure and contractions. Denies leaking or bleeding. Reports good movement. sve: 50/post/2/-4 soft Discussed labor precautions. Kick count. Discussed ER precautions. Return in a week OB check CELSO Calculator Estimated Delivery Date Method Current WG Current Estimate 08/06/25 LMP (Certain) 41w 5d Notes Visit Date: 07/10/25 Last Updated by: Pam Toibas CNM 25 yo . lmp 10/30/24. EDC: 08/06/25. O+,abs-,rpr;;nr, rub ni, hbsag-,hiv-,hc-,GC/CT-. nipt and carrier-, 1 hr gtt wnl, GBS- HPI Interval History: 25-year-old 3 para 3 for 4-week . Patient had a vaginal July 17, 2025. Baby girl weighing 6 pounds 12 ounces. She is bottlefeeding. She has not had sex yet. She would like to start on Depo shot. She used it in the past and did well no problems. Her siblings are adjusting. Father the baby's involved and helpful. She has no complaints. Was or delivery considered high risk: Yes Delivery type: vaginal Was labor induced: no Gestational age at delivery (weeks): 37.1 Delivery date: 07/17/25 Delivering provider: moy Delivery complications: No Is patient : No Is patient sexually active: No Contraception planned: depo Review of Systems Review of Systems ROS limited to current MANAGER E LEARNING complaints: Yes Exam Narrative Physical exam: Normal heart rate and rhythm. Lungs clear no wheezes. Abdomen is soft nontender. Uterus well involuted. Perineum is intact no lacerations. No swelling. Small lochia. Negative Homans' sign. 2+ DTRs. No edema no swelling. Breasts are soft Office Procedures [facility] LOC & Office Proc's Nursing/Assessment Patient Status: Established Patient OB Clinic Nursing Assessment: Medication Reconciliation, Update PMH in EMR and Vital Signs OB Clinic Coordination of Care: Complex Care and Chronic Disease 1-5, Education Complex Pt/Fam, Consent,records obtained, informed consent, Lab and Imaging orders, Results/Orders obtained and Staff clarify orders Established Patient Charge Established Patient Point Assignment: 110 Established Patient Point Charge: EP Level 3 (80-115) Antepartum Initial or Follow-up Antepartum Initial Visit: Yes Injection/Vaccine Admin Admin 1st Vaccine: Yes Office Meds Depo-Provera 150 mg/mL intramuscular syringe Performing Provider: Pam Tobias CNM Performing Location: [facility] Administered by: Ema Sosa MA on 08/18/25 15:34 Dose Route Admin Location Dispensed Lot Number Expiration Date Pack age [facility] Medical Physics Professor 150 mg IM RIGHT GLUTE 1 mL [id number] 04/20/26 2652-8955-87 [id number] [employer] Assessment & Plan Diagnosis / Problem List (1) 6 weeks follow-up: Status: Acute (2) Encounter for Depo-Provera contraception: Status: Acute Plan Depo 150 IM x 1. Condoms for 2 weeks. Reviewed method, side effects, effectiveness. Walk 40 minutes a day. Continue prenatals and take calcium twice a day. And return in 3 months for repeat Depo. Care Reviewed delivery summary and any complications: Yes Uterus involuted to: 4 below Perineal / incision healing noted: Yes Screened for depression: Yes Depression counseling provided: No Discussed family planning & contraception: Yes Contraception planned: depo Counseling on safe resumption of sexual activity: Yes Discussed and concerns (describe), provided support: No Referred to homeland security program specialist: No Counseled on good nutrition, hydration, and self care: Yes Reviewed vaccine status: No Chronic & current problems reconciled on problem list: Yes care discussed; questions answered: feeding Follow up: routine/prn Additional counseling & anticipatory guidance provided: Depo-Provera 150 IM x 1. Condoms for 2 weeks. Reviewed method and side effects. Return in 3 months repeat Depo
[2025-08-18 13:18] VITALS: BP 101/71; PULSE 74; RESP 18; TEMP 36.6; O2SAT 98
== END 2025-08-18 13:44 | disposition home or self-care (01) ==
LOC: HODSOBC 13:02
PROVIDERS: Supervising Provider Advanced Practice Midwife; Visit Provider Advanced Practice Midwife
DX: Z39.2 Encounter for routine postpartum follow-up (principal); Z30.013 Encounter for initial prescription of injectable contraceptive
CPT/HCPCS: 59425; 90471; 99213; J3490; G0463